=== PATIENT | male | born 1985 | race Caucasian/White ===

== ENCOUNTER 2017-02-04 18:27 | Emergency (ER) | payer BC, OTHER ==
[~2017-02-04] VITALS: Ht 177.8 cm; Wt 103.0 kg
[~2017-02-04 18:27] MED LIST: CLON-412 PO
[2017-02-04 18:37] VITALS: Ht 177.8 cm; Wt 103.0 kg
--- NOTE | 2017-02-04 19:49 | ERD ---
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 Patient denies any foreign body sensation on affected area. Patient denies any eye discharge. Patient denies any tearing. Patient denies any redness. Patient denies any vision changes. ROS All systems reviewed and are negative except as per history of present illness. Medications Home Meds Reported Medications Clonazepam* (Klonopin*) 1 Mg Tablet, 1 MG PO DAILY 07/02/11 Allergies Allergies: Coded Allergies: No Known Drug Allergies (Verified Allergy, Unknown, 02/04/17) PMhx/Soc History of Surgery: Yes (WRIST, TONSILECTOMY, WISDOM TEETH) Anesthesia Reaction: No Hx Neurological Disorder: No Hx Respiratory Disorders: No Hx Cardiac Disorders: No Hx Psychiatric Problems: Yes (depression) Hx Miscellaneous Medical Probl: No Hx Alcohol Use: Yes Hx Substance Use: No Hx Tobacco Use: No Smoking Status: Never smoker FmHx Family History: No coronary disease, No diabetes, No other Physical Exam Vitals Vital Signs Date Time Temp Pulse Resp B/P Pulse Ox O2 Delivery O2 Flow Rate FiO2 02/04/17 18:37 97.8 60 20 139/80 100 Physical Exam GENERAL: The patient is well developed and appropriate for usual state of health, in no apparent distress. HEENT: Atraumatic. biLateral eyes are PERRL EOM intact. No erythema in the conjunctiva noted, no eye discharge noted. No redness surrounding the eye. No open lesions or burn wounds noted.Ears: Normal tympanic membrane, no erythema or bulging. No ear canal swelling. No ear discharge. Nose: normal nasal turbinates, no erythema or swelling. Normal nasal discharge. Throat: oropharynx clear. No tonsillar swelling or tonsillar exudates. No lymphadenopathy. CHEST: Clear to auscultation bilaterally. There are no rales, wheezes or rhonchi. HEART: Regular rate and rhythm. No murmurs, clicks, rubs or gallops. No S3 or S4. ABDOMEN: Soft, nontender and nondistended. Good bowel sounds. No rebound or guarding. No gross peritonitis. No gross organomegaly or masses. No Salomon sign or McBurney point tenderness. BACK: No midline or flank tenderness. EXTREMITIES: Equal pulses bilaterally. There is no peripheral clubbing, cyanosis or edema. No focal swelling or erythema. Full range of motion. Grossly neurovascularly intact. NEURO: Alert and oriented. Cranial nerves 2-12 intact. Motor strength in all 4 extremities with 5/5 strength. Sensation grossly intact. Normal speech and gait. SKIN: There is no apparent rash or petechia. The skin is warm and dry. HEMATOLOGIC AND LYMPHATIC: There is no evidence of excessive bruising or lymphedema. No gross cervical, axillary, or inguinal lymphadenopathy. Results 24 hrs Current Medications Medications (Trade) Dose Ordered Sig/Yuriy Route PRN Reason Start Time Stop Time Status Last Admin Dose Admin Tetracaine HCl (Tetracaine 0.5% Steri-Unit Gema) 1 drop ONCE ONCE BOTH EYES 02/04/17 20:00 02/04/17 20:01 DC Fluorescein Sodium (Nivcx-D-Xxkaz) 1 strip ONCE ONCE BOTH EYES 02/04/17 20:00 02/04/17 20:01 DC Procedure Note: After obtaining informed consent, the bilateral eye was stained using fluorescein dye. After staining the eye, A Wood's lamp was used to evaluate the eye. There is no foreign body noted in the eye. No corneal abrasions noted. Patient tolerated procedure well. Procedures/MDM Medical decision making: Patient symptoms is likely consistent with a chemical injury of the eye, most likely irritation from oil, no corneal abrasion, no foreign body noted, no signs of sign. No vision changes. Patient does not have any tearing at this time. Patient's pain is controlled at this time. Patient was given for Vigamox to prevent infection, is advised tor follow-up with eye doctor within one reevaluation of symptoms. Patient was advised to return to emergency department for any worsening symptoms. Disposition: Home. Stable. Departure Diagnosis: Primary Impression: Chemical injury of eye Encounter type: initial encounter Laterality: unspecified laterality Qualified Code: T26.90XA - Chemical injury of eye, unspecified laterality, initial encounter Condition: Stable Patient Instructions: Eye Exposure, Chemical ELIZABETH ROSENBERG NP Feb 04, 2017 19:49
[2017-02-04] MEDS ORDERED: FLUORESCEIN STRIP BOTH EYES ONE (20:00)
[2017-02-04] MEDS ORDERED: TETRACAINE 0.5% 4 ML OPH BOTH EYES ONE (20:00)
[2017-02-04] MEDS ORDERED: VIGA LEFT EYE (20:28)
== END 2017-02-04 20:43 | disposition home or self-care (01) ==
LOC: FTE 18:27
DX: T59.891A Toxic effect of other specified gases, fumes and vapors, accidental (unintentional), initial encounter (principal); T26.90XA Corrosion of unspecified eye and adnexa, part unspecified, initial encounter; X10.2XXA Contact with fats and cooking oils, initial encounter; Y92.89 Other specified places as the place of occurrence of the external cause
CPT/HCPCS: 99283